=== PATIENT | female | born 2000 | race Hispanic/Latino ===

== ENCOUNTER 2020-05-22 01:51 | Inpatient (IN) | payer BC, OTHER ==
--- OUTSIDE RECORDS SUMMARY | 2020-05-22 01:53 | XMS REPORT | Continuity of Care Document ---
:2000 Author Organization [facility] Care Team Providers Name Role Phone [facility] Unavailable Un available Problems Problem Status Onset Classification Date Comments Sourc e Date Reported Tachycardia Active Diagnosis 06/12/2019 [facility] Cardiovasc ular Precordial Active Diagnosis 06/12/2019 CL chest pain Cardiovas cular SOB (shortness Active Diagnosis 06/12/2019 CL of breath) Cardiovas cular Dizziness of Active Diagnosis 06/12/2019 CL unknown cause Cardio vascular Medications Medication Details Route Status Patient Ordering Order Source Instructions Provider Date Magnesium 1 tablet Orally Active 500 MG Orally Robb CL Gluconate twice a day 019 Cardiovasc ular Allergies, Adverse Reactions, Alerts Substance Category Reaction Severity Reaction Status Date Comments S ource type Reported N.K.D.A. Adverse Info Not Adverse CL Reaction Available Reaction 9 Card iovascula r Immunizations No Data Provided for This Section Results No Data Provided for This Section Pathology Reports No Data Provided for This Section Diagnostic Reports No Data Provided for This Section Consultation Notes No Data Provided for This Section Discharge Summaries No Data Provided for This Section History and Physicals No Data Provided for This Section Vital Signs Vital Sign Value Date Comments Source Weight 107 06/10/2019 CL Cardiovascul ar Height 63 06/10/2019 CL Cardiovascul ar Heart Rate 82 06/10/2019 CL Cardiovascul ar Diastolic (mm Hg) 82 06/10/2019 CL Cardiov ascular Systolic (mm Hg) 120 06/10/2019 CL Cardiova scular Weight 114 05/26/2019 CL Cardiovascul ar Height 63 05/26/2019 CL Cardiovascul ar Heart Rate 92 05/26/2019 CL Cardiovascul ar Diastolic (mm Hg) 68 05/26/2019 CL Cardiov ascular Systolic (mm Hg) 122 05/26/2019 CL Cardiova scular Encounters No Data Provided for This Section Procedures No Data Provided for This Section Assessment and Plan No Data Provided for This Section Plan of Care No Data Provided for This Section Social History No Data Provided for This Section Family History No Data Provided for This Section Advance Directives No Data Provided for This Section Functional Status No Data Provided for This Section
--- OUTSIDE RECORDS SUMMARY | 2020-05-22 01:53 | XMS REPORT | Continuity of Care Document ---
:2000 Author Organization [facility] t Address [address] [place] [address] Care Team Providers Name Role Phone Doctor Unassigned, Name Attending Clinician Unavailable Problems Condition Condition Condition Status Onset Resolution Last Treating Co mments Source Name Details Category Date Date Treatment Clinician Date Tachycardi Diagnosis Active 2019-06-12 Memoria a 02:45:46 l Chi Tachycardi a Active Diagnosis 06/12/2019 CL Cardiovasc ular Precordial Diagnosis Active 2019-06-12 Memoria chest pain 02:45:46 l Chi Precordial chest pain Active Diagnosis 06/12/2019 CL Cardiovasc ular SOB Diagnosis Active 2019-06-12 Mem oria (shortness 02:45:46 l of breath) SOB Tomás n (shortness of breath) Active Diagnosis 06/12/2019 CL Cardiovasc ular Dizziness Diagnosis Active 2019-06-12 Memoria of unknown 02:45:46 l cause Chi Dizziness of unknown cause Active Diagnosis 06/12/2019 CL Cardiovasc ular Allergies, Adverse Reactions, Alerts Allergy Allergy Status Severity Reaction(s) Onset Inactive Treating Comm ents Source Name Type Date Date Clinician N.K.D.A. N.K.D.A. Active Info Not 2018- Sang cuate Available 06-10 l 00:00: [place] 00 Medications Ordered Filled Start Stop Current Ordering Indication Dosage Frequency Signature Comments Components Source Medication Medication Date Date Medication? Clinician (SIG) Name Name Magnesium 2018- Yes Mohamed 1 tablet M emoria Gluconate 06-10 Robb l 00:00: [facility] 00 Vital Signs Vital Name Observation Time Observation Value Comments Source Weight 2019-06-10 18:30:00 [facility] [place] Height 2019-06-10 18:30:00 [facility] [place] Heart Rate 2019-06-10 18:30:00 [facility] [place] Diastolic (mm Hg) 2019-06-10 18:30:00 Mem orial [place] Systolic (mm Hg) 2019-06-10 18:30:00 Sang rial [facility] Weight 2019-05-26 14:30:00 [facility] [place] Height 2019-05-26 14:30:00 [facility] [place] Heart Rate 2019-05-26 14:30:00 [facility] [place] Diastolic (mm Hg) 2019-05-26 14:30:00 Mem orial [facility] Systolic (mm Hg) 2019-05-26 14:30:00 Sang rial [place] Procedures This patient has no known procedures. Encounters Start End Encounter Admission Attending Care Care Encounter Source Date/Time Date/Time Type Type Clinicians Facility Department ID 2020-01-22 2020-01-22 Orders Doctor MADAI [id number] 00:00:00 00:00:00 Only Unassigned, CELY [id number] [place] [facility] [id number] 2019-06-10 2019-06-10 Outpatient Corry Castelan [id number] 13:30:00 13:30:00 Robb anand Md [facility] Pa 2019-06-06 2019-06-06 Outpatient Corry Castelan [id number] [facility] 10:30:00 10:30:00 Robb Landeros Pa 2019-05-26 2019-05-26 Outpatient Corry Castelan [id number] [facility] 09:30:00 09:30:00 Robb anand [facility] Pa Results This patient has no known results.
[2020-05-22] MEDS ORDERED: Ringers Lactate 1,000 ML IV SCH (04:08)
[2020-05-22] MEDS ORDERED: Ringers Lactate 1,000 ML IV PRN (04:08)
[2020-05-22] MEDS ORDERED: PROMETHAZINE INJ 25 MG/ML AMP IM PRN (04:08)
[2020-05-22] MEDS ORDERED: METHYLERGONOVINE 0.2MG/ML AMP IM PRN (04:08)
[2020-05-22] MEDS ORDERED: CARBOPROST TROME 250 MCG/ML IM PRN (04:08)
[2020-05-22] MEDS ORDERED: OXYTOCIN/LR 20 UNIT/1,000 ML BAG IV SCH ×2 (04:08→14:00)
[2020-05-22] MEDS ORDERED: BUTORPHANOL 1 MG/ML INJ IV PRN (04:08)
[2020-05-22 05:55] LABS: Urine Appearance CLEAR; Urine Bilirubin NEGATIVE (NEG); Urine Blood NEGATIVE (NEG); Urine Color YELLOW; Urine Glucose NEGATIVE (NEG); Urine Protein NEGATIVE (NEG); Urine Urobilinogen 0.2 mg/dL (0.2-1.0)
[2020-05-22 05:57] LABS: Urine Microscopic Reflex NO UMIC
[2020-05-22 06:05] LABS: Absolute Lymphocytes (CBC) 1.5 K/uL (0.7-4.9); Basophils % 0.7 % (0-1.3); Hematocrit 35.4 % (36.0-45.0); Lymphocytes % 8.8 % (15.3-44.8); MPV 9.6 fL (7.6-11.3); RBC Red Blood Cell Count 4.14 M/uL (3.86-4.86)
[2020-05-22] MEDS ORDERED: FENTANYL CITR 100 MCG/2 ML IV ONE (07:01)
[2020-05-22] MEDS ORDERED: ROPIVACAINE HCL 100 ML IV PRN (07:01)
[2020-05-22] MEDS ORDERED: 0.2% ROPIVACAINE (200 MG/100 ML) BAG IV PRN (07:29)
[2020-05-22] MEDS ORDERED: ROPIVACAINE HCL 20 ML ONE (07:47)
[2020-05-22] MEDS ORDERED: LIDOCAINE 1% MPF 30 ML VIAL ONE (10:24)
[2020-05-22] MEDS ORDERED: ACETAMINOPHEN 500 MG TAB PO PRN (11:42)
[2020-05-22] MEDS ORDERED: DIPHENHYDRAMINE 25 MG TAB/CAP PO PRN (11:42)
[2020-05-22] MEDS ORDERED: Oxycodone HCl/Acetaminophen 1 TAB TAB PO PRN ×2 (11:42)
[2020-05-22] MEDS ORDERED: BISACODYL 10 MG RECTAL SUPP PR PRN (11:42)
[2020-05-22] MEDS ORDERED: DOCUSATE NA/SENNA CONC 1 TAB PO PRN (11:42)
[2020-05-22] MEDS: IBUPROFEN 600 MG TAB PO PRN (14:50)
[2020-05-22] MEDS ORDERED: Ringers Lactate 1,000 ML IV ONE ×2 (16:15→16:19)
--- NOTE | 2020-05-22 20:13 | OP ---
Surgeon: Roberto Shah MD Lana Meraz, 19-year-old, primigravida, 39 weeks, scheduled for induction on Sunday, came in in early labor. During the first stage of labor, IV Stadol plus Phenergan IM. Epidural anesthesia was instituted at approximately 4-5 cm. Second stage of approximately an hour. Spontaneous vaginal deli very of 6 pounds 9 ounces female, Apgars 9 and 9. Small first-degree to second-degree laceration rep aired with 2-0 chromic. Schultze delivery of the placenta, which was inspected and noted to be intac t and normal. 300 cc or less blood loss. Beta strep negative. Rh positive. Immune to rubella. Ne grace SKINNER. Tolerated all procedures well. Final Diagnoses: Term intrauterine at 39 weeks, spontaneous labor, vaginal delivery, epidu ral anesthesia. YASMINE/LUIS DANIEL Voice ID: [id number] Report ID: [id number]
[2020-05-22 21:02] VITALS: BMI 26.4
[2020-05-23] MEDS: IBUPROFEN 600 MG TAB PO PRN (04:10)
[2020-05-23 08:00] VITALS: BP 99/50; TEMP 98.4
--- NOTE | 2020-05-23 08:28 | DS ---
A 19-year-old primigravida, 39 weeks, delivered a 6 pounds 9 ounces female, Apgars 9 and 9. Small fi rst, almost second-degree laceration repaired with 2-0 chromic. Schultze delivery of the placenta. Initial blood loss 300 cc. Nurse reported later slight hypotonus, 1 dose of Methergine IM. Bleeding normal since then. Rh positive, immune to rubella. Negative beta strep screen. The patient has no t had her Tdap shot during the . This is encouraged before she leaves. Full discussion wit h the patient and . The patient to report any temperature elevation of 100 degrees or greater , severe pain, heavy bleeding, or any other type of abnormalities. Requires no analgesics on dismiss al. Final Diagnoses: Term intrauterine , 39 weeks, spontaneous labor, vaginal delivery, epidura l anesthesia. Tdap offered. YASMINE/LUIS DANIEL Voice ID: [id number] Report ID: [id number]
[2020-05-23] MEDS ORDERED: Tdap (Diph,Pertuss(Acell),Tet Vac) 0.5 ML SYR IMVAC ONE (09:00)
[2020-05-24 01:09] LABS: RPR (Rapid Plasma Reagin) NON-REACT (NON-REACT)
--- NOTE | 2020-05-24 14:00 | PN ---
The patient is very comfortable, in fact too comfortable, really can barely move her legs, cannot fee l any contractions with movement of the maintenance dose from 10 to 6. She has a small lip of cervix on the right side. Otherwise, 100% and +2 station. As soon as that small amount of cervix gets dil ated, she should be able to start pushing. Baby variability is decreased at this point, but she did have Stadol earlier, hopefully that would be the reason. We will get the baby out as soon as ирина UNDERWOOD/LUIS DANIEL Voice ID: [id number] Report ID: [id number]
== END 2020-05-23 13:30 | disposition home or self-care (01) | DRG 807 ==
LOC: L&D 01:51 → 2ND-WC 04:24
PROVIDERS: ADMIT Specialist; ATTEND Specialist
PROC: 10E0XZZ Delivery of Products of Conception, External Approach (ICD-10-PCS; principal; 2020-05-22)
PROC: 0KQM0ZZ Repair Perineum Muscle, Open Approach (ICD-10-PCS; 2020-05-22)
PROC: 10907ZC Drainage of Amniotic Fluid, Therapeutic from Products of Conception, Via Natural or Artificial Opening (ICD-10-PCS; 2020-05-22)
DX: O70.1 Second degree perineal laceration during delivery (principal); Z37.0 Single live birth; Z3A.39 39 weeks gestation of pregnancy; Z11.59 Encounter for screening for other viral diseases
CPT/HCPCS: 36415; 81003; 85025; 86592; 86901; 87340; 90471; 90715; J0595; J2210; J2550; J2590; J2795; J3010; J7120